=== PATIENT | female | born 2000 | race Caucasian/White ===

== ENCOUNTER 2022-11-11 09:44 | Outpatient (CLI) | payer OTHER | END 2022-11-11 09:45 | disposition home or self-care (01) | LOC: MRI 09:44 | PROVIDERS: ATTEND Psychiatry & Neurology Neurology | DX: R27.0 Ataxia, unspecified (principal); G31.9 Degenerative disease of nervous system, unspecified | CPT/HCPCS: 70553; 72156 ==